=== PATIENT | male | born 1985 | race Caucasian/White ===

== ENCOUNTER 2016-11-26 13:07 | Emergency (ER) | payer OTHER ==
[~2016-11-26] VITALS: Ht 175.2 cm; Wt 68.0 kg
[~2016-11-26 13:07] MED LIST: KEFLEX500 MG PO; LEVAQUIN750 M1 PO; MOTRIN800 MG PO; PROAIR HFA8.5 GM INH; SUBOXONE 8 MG-21 TA1 SL; VIBRAMYCIN100 MG PO; VISTARIL25 M2 PO; ZOFRAN ODT4 MG SL
[2016-11-26] MEDS ORDERED: LORAZEPAM0.5 MG PO (13:46)
[2016-11-26] MEDS ORDERED: METOPROLOL SUC100 M1 PO (13:46)
[2016-11-26] MEDS ORDERED: AMPICILLIN500 MG PO (13:47)
[2016-11-26] MEDS ORDERED: AUGMENTIN 875-875 MG PO (13:56)
[2016-11-26] MEDS ORDERED: LORATADINE D 101 T24 PO (13:56)
== END 2016-11-26 14:05 | disposition home or self-care (01) ==
LOC: ED 13:07
DX: J06.9 Acute upper respiratory infection, unspecified (principal); H66.91 Otitis media, unspecified, right ear